=== PATIENT | male | born 1975 | race Caucasian/White ===

== ENCOUNTER 2017-02-21 04:00 | Inpatient (IN) | payer BC ==
--- NOTE | ~2017-02-21 | PN ---
Unit #: [id number] #: [id number] Patient: NANCY HENRY [id number] [facility] [address] [place] [address] [id number] MR#: [id number] NAME: NANCY HENRY ROOM: [facility] Age: 42 Sex: M Admission Date: 02/21/2017 : 1975 Attending Physician: Cam Arreaga M.D. Admitting Physician: Cam Arreaga M.D. Primary Care Physician: Generic Doctor Not In System [facility] PROGRESS NOTES DATE February 26, [address] Cam Arreaga DISCUSSION This patient was seen and evaluated on February 26, 2017. He reports feeling much better. He is pleasant and cooperative during interaction. He is attending groups and unit activities. He denies any SI or HI and contracts for safety. The patient continues inpatient hospitalization for safety and stabilization at this time. Dictated by... Tabby Baum/theodore TD: 03/01/2017 09:14 JOB #: [id number] [facility] PROGRESS NOTES Page 1 of 1 X Loretta Rosa PROGRESS NOTE
--- NOTE | ~2017-02-21 | EKG ---
PATIENT: NANCY HENRY UNIT #: [id number] Ventricular Rate: 99 BPM Atrial Rate: 99 BPM P-R Interval: 164 ms QRS Duration: 96 ms Q-T Interval: 332 ms QTC Calculation(Bezet): 426 ms P [place]: 48 degrees Calculated R [place]: 65 degrees Calculated T [place]: 50 degrees Diagnosis Line: Normal sinus rhythm Diagnosis Line: Minimal voltage criteria for LVH, may be normal Diagnosis Line: variant Diagnosis Line: Borderline ECG Diagnosis Line: No previous ECGs available Diagnosis Line: Confirmed by RACHEL MURILLO MD ([id number]) on Diagnosis Line: 02/23/2017 8:22:35 AM INTERPRETING MD: CHIDI NAGEL
--- NOTE | ~2017-02-21 | PA ---
Unit #: [id number] #: [id number] Patient: RYAN DEAL [id number] [facility] [address] [place] [address] [id number] MR#: [id number] NAME: RYAN DEAL ROOM: [facility] Age: 42 Sex: M Admission Date: 02/21/2017 : 1975 Date of Assessment: 02/22/2017 Attending Physician: Cam Arreaga M.D. Admitting Physician: Cam Arreaga M.D. Primary Care Physician: Tamiko Doctor Not In System PSYCHIATRIC ASSESSMENT DATE OF SERVICE 02/22/2017. INFORMANTS The patient, unreliable; [facility], reliable; [facility], reliable; the patient's family, reliable. CHIEF COMPLAINT "I don't know how I got here." HISTORY OF PRESENT ILLNESS Ryan Deal is a 42-year-old man, whose staff at the hospital reports that he had stripped all of his clothing off with hanging from a light fixture. Family stated he had been awake for 30 hours and had destroyed and rearranged everything in his room. He appeared quite psychotic and family stated this had been present once before. They denied a history of drug use. He was admitted for his acute psychiatric illness. PAST PSYCHIATRIC HISTORY Unclear at this time as the patient has a history of psychiatric treatment, but he was hospitalized at [facility] per family report. They could not recall details of this hospitalization. We will attempt to obtain records for further information. FAMILY PSYCHIATRIC HISTORY None reported. SOCIAL HISTORY The patient denied a history of childhood abuse or neglect. He is a single heterosexual man with no current legal charges. He did have a history of a DUI in the remote past. He is a high school graduate with some college, who has been working at a local [employer] quality [employer]. He has been staying with his girlfriend recently. PAST MEDICAL HISTORY No chronic medical problems. MEDICATIONS None currently. ALLERGIES No known medication allergies. Unit #: [id number] #: [id number] Patient: RYAN DEAL SUBSTANCE USE HISTORY There is no reported history of chemical abuse or dependence. MENTAL STATUS EXAMINATION The patient presented as a mildly disheveled man, who appeared his stated age. He was attempting to cooperate with the examination. His speech was somewhat sparse and he continually stated that he could not describe symptoms or could not recall events prior to coming to the hospital. He did state that his mind was "going in circles, like a tornado," and appeared paranoid as well as feeling "closed in" on the unit, where he could not get some "fresh air." Further mental status examination will be attempted when the patient is better able to cooperate. ASSETS AND LIABILITIES The patient is youthful, has supportive family. Liabilities include unclear diagnosis and lack of current treatment. ADMITTING DIAGNOSES AXIS I: Bipolar mixed with psychotic features, F31.64 (provisional diagnosis), rule out substance-induced mood disorder versus schizophrenia. AXIS II: No diagnosis. AXIS III: None acute. AXIS IV: AXIS V: PSYCHIATRIC PLAN The patient was admitted and placed on psychosis precautions. We will initiate Zyprexa 10 mg at bedtime for empiric treatment of mood lability and psychosis. The patient will enroll in reality based activities and we will monitor his behavior closely to maintain safety. TREATMENT GOALS Resolution of psychosis, improvement in insight, and improvement in coping skills. DISCHARGE PLANNING Follow up with [facility]. ESTIMATED LENGTH OF STAY 5 days. Dictated by... Cam Arreaga M.D. RICCO/monica TD: 02/24/2017 12:22 JOB #: [id number] Unit #: [id number] #: [id number] Patient: RYAN DEAL PSYCHIATRIC ASSESSMENT Page 1 of 1 X Cam Arreaga MD X PSYCHIATRIC ASSESSMENT
--- NOTE | ~2017-02-21 | HP ---
Unit #: [id number] #: [id number] Patient: RYAN HENRY [id number] [place] [address] [id number] MR#: [id number] NAME: RYAN HENRY ROOM: [facility]5 Age: 42 Sex: M Admission Date: 02/21/2017 : 1975 Attending Physician: Cam Arreaga M.D. Admitting Physician: Cam Arreaga M.D. Primary Care Physician: Generic Doctor Not In System HISTORY AND PHYSICAL HISTORY OF PRESENT ILLNESS Ryan is a 42 year old, admitted to [address] [place] [address] with psychotic behavior. He is a poor historian so his history is taken from his chart. PAST MEDICAL HISTORY Nothing significant. PAST SURGICAL HISTORY Nothing reported. ALLERGIES No known drug allergies. SOCIAL HISTORY He smokes, drinks alcohol on occasion, and denies illicit drug use. FAMILY HISTORY Medically noncontributory. REVIEW OF SYSTEMS He doesn't answer questions appropriately. There are no reports of nausea, vomiting, or diarrhea. He has had no cough or increased temperature. CURRENT MEDICATIONS 1. Zyprexa 10 mg q.h.s. 2. Milk of magnesia p.r.n. 3. Maalox p.r.n. 4. Tylenol p.r.n. 5. Thorazine 100 mg q.6h p.r.n. PHYSICAL EXAMINATION GENERAL: Alert, well-nourished, no apparent distress. VITAL SIGNS: Blood pressure 140/94, heart rate 80, respirations 16, and temperature 98.6. WEIGHT: 159 pounds. HEIGHT: 5 feet 8 inches. SKIN: Warm and dry without rash or lesion. HEENT: Normocephalic. TMs not viewed. Oral and nasal passages clear. Conjunctivae clear. PERRLA. EOMs intact. NECK: Supple without lymphadenopathy or thyromegaly. HEART: Regular rate and rhythm without murmur. LUNGS: Clear. Unit #: [id number] #: [id number] Patient: RYAN HENRY ABDOMEN: Soft, nontender. : Not done. EXTREMITIES: No evidence of cyanosis, clubbing or edema. Moves all without focal deficit. NEUROLOGICAL: Unable to complete extended exam. He does move all extremities without focal deficit, hand help desk specialist is equal, and gait is normal. IMPRESSION Psychiatric admission. RECOMMENDATIONS Psychiatric, per psychiatrist. MEDICAL I see no contraindications to participating in facility's activities. MEDICAL PROGNOSIS Good. MEDICAL CONDITION Stable. Dictated by... Katelin Boggs P.A.-C. for Scarlett Reyes/theodore TD: 02/22/2017 15:29 JOB #: [id number] HISTORY AND PHYSICAL Page 1 of 1 X Katelin Boggs X HISTORY AND PHYSICAL
--- NOTE | ~2017-02-21 | DS ---
Unit #: [id number] #: [id number] Patient: NANCY HENRY [id number] [facility] [address] [place] [address] [id number] I MR#: [id number] NAME: NANCY HENRY ROOM: [facility] Age: 42 Sex: M Admission Date: 02/21/2017 : 1975 Discharge Date: 03/04/2017 Attending Physician: Cam Arreaga M.D. Primary Care Physician: Generic Doctor Not In System DISCHARGE SUMMARY REASON FOR ADMISSION Nancy is a 42-year-old man with presentation of disorganized behavior, not sleeping, racing thoughts, and psychosis. Family did report this had been present once in his life, but he did not get treatment. He was clearly decompensated and admitted from [facility]. DIAGNOSTIC STUDIES LABORATORY RESULTS: Depakote level was 79. HOSPITAL COURSE The patient was admitted and placed on psychosis precautions. Zyprexa 10 mg at bedtime was initiated for empiric treatment, and as the hospitalization progressed, it became clear that the patient's diagnosis is a bipolar disorder with a manic or mixed state. Depakote 500 mg b.i.d. was therefore added and was well tolerated. The patient described his thoughts as "going in circles like a tornado" and was agitated and bizarrely posturing on the unit. He also engaged in some bizarre dress and interactions with peers. These gradually resolved and he became more able to hold a conversation, make eye contact, and participating group therapy. He tolerated his medication with no adverse side effects and on the date of discharge, his mental status had cleared considerably, although he demonstrated mild residual paranoia. DISCHARGE DIAGNOSES AXIS I: Bipolar mixed with psychotic features. AXIS II: No diagnosis. AXIS III: None acute. AXIS IV: AXIS V: DISCHARGE INSTRUCTIONS Follow up with [facility]. DISCHARGE MEDICATIONS Depakote 500 mg b.i.d. for mood stability and Zyprexa 10 mg at bedtime for psychosis. CONDITION AT DISCHARGE Improved. PROGNOSIS Fair to good with ongoing compliance and followup. Unit #: [id number] #: [id number] Patient: NANCY HENRY DIET AND ACTIVITY [employer]. Dictated by... Cam Arreaga M.D. [facility]/modl TD: 03/05/2017 03:14 JOB #: [id number] DISCHARGE SUMMARY Page 1 of 1 X Cam Arreaga MD DISCHARGE SUMMARY
[2017-03-01 10:11] LABS: ALBUMIN SERUM 4.1 g/dL (3.5-5.0); BILIRUBIN,TOTAL 0.7 mg/dL (0.2-2.0); BUN/CREATININE RATIO 17.5; CALCIUM SERUM 9.2 mg/dL (8.4-10.2); CREATININE SERUM 0.8 mg/dL (0.6-1.4); POTASSIUM 4.3 mmol/L (3.5-5.1); PROTEIN TOTAL SERUM 6.7 g/dL (6.0-8.3)
== END 2017-03-04 12:51 | disposition home or self-care (01) | DRG 885 ==
LOC: P1S 15:48
PROVIDERS: Psychiatry & Neurology Psychiatry
DX: F31.64 Bipolar disorder, current episode mixed, severe, with psychotic features (principal)
CPT/HCPCS: 80053; 80164; 93005